=== PATIENT | male | born 1940 | race Caucasian/White ===

== ENCOUNTER → 2016-11-15 | Outpatient (CLI) | payer MEDICARE, OTHER ==
[2016-11-15 08:47] LABS: Basophils # (A) 0.1 k/uL (0-0.2); Basophils % (A) 1 %; CH 31.4; CHCM 34.5; Eosinophils # (A) 0.1 k/uL (0-0.7); Eosinophils % (A) 2 %; HCT 49.1 % (39.0-53.0); HDW 2.69; HGB 16.4 gm/dL (13.0-17.5); Luc % (Auto) 3; Lymphocytes # (A) 1.2 k/uL (1.0-4.8); Lymphocytes % (A) 19 %; MCH 30.5 pg (25.0-35.0); MCHC 33.4 g/dL (31.0-37.0); MCV 91.3 fL (80.0-100.0); Mean Platelet Volume 7.1; Monocytes # (A) 0.5 k/uL (0-1.0); Monocytes % (A) 7 %; Neutrophils # (A) 4.5 k/uL (1.3-7.7); Neutrophils % (A) 69 %; RBC 5.38 m/uL (4.30-5.90); RDW 12.8 % (11.5-15.5); WBC 6.5 k/uL (3.8-10.6); WBC (Perox) 6.82
[2016-11-15 10:48] LABS: Hemoglobin A1C 5.8 % (4.2-6.1)
[2016-11-15 11:05] LABS: ALT 49 U/L (21-72); AST 29 U/L (17-59); Alkaline Phosphatase 66 U/L (38-126); Anion Gap 10 mmol/L; Blood Urea Nitrogen 14 mg/dL (9-20); Calcium 9.3 mg/dL (8.4-10.2); Carbon Dioxide 28 mmol/L (22-30); Chloride 104 mmol/L (98-107); Cholesterol 138 mg/dL (<200); Glucose 125 mg/dL (74-99); HDL Cholesterol 43 mg/dL (40-60); Non-African American GFR(MDRD) >60 (>60 ml/min/1.73 sqM); Potassium 4.1 mmol/L (3.5-5.1); Sodium 142 mmol/L (137-145); Total Protein 6.9 g/dL (6.3-8.2)
[2016-11-15 11:39] LABS: Prostate Specific Antigen <0.10 ng/mL (0.00-4.00)
== END | disposition home or self-care (01) ==
LOC: LABWHC1 08:12
PROVIDERS: ATTEND Internal Medicine Geriatric Medicine
DX: E78.00 Pure hypercholesterolemia, unspecified (principal); R73.09 Other abnormal glucose; N40.0 Benign prostatic hyperplasia without lower urinary tract symptoms; I10 Essential (primary) hypertension
CPT/HCPCS: 36415; 80053; 80061; 83036; 84153; 84439; 84443; 85025

== ENCOUNTER → 2018-08-27 | Outpatient (CLI) | payer MEDICARE, OTHER ==
[2018-08-27 11:28] LABS: Basophils # (A) 0.1 k/uL (0-0.2); Basophils % (A) 1 %; Eosinophils # (A) 0.2 k/uL (0-0.7); Eosinophils % (A) 3 %; HCT 42.6 % (39.0-53.0); HGB 14.3 gm/dL (13.0-17.5); Lymphocytes # (A) 1.2 k/uL (1.0-4.8); Lymphocytes % (A) 19 %; MCH 29.3 pg (25.0-35.0); MCHC 33.6 g/dL (31.0-37.0); MCV 87.2 fL (80.0-100.0); Mean Platelet Volume 7.6; Monocytes # (A) 0.5 k/uL (0-1.0); Monocytes % (A) 8 %; Neutrophils # (A) 4.4 k/uL (1.3-7.7); Neutrophils % (A) 68 %; Platelet Count 267 k/uL (150-450); RBC 4.89 m/uL (4.30-5.90); RDW 13.7 % (11.5-15.5); WBC 6.5 k/uL (3.8-10.6)
[2018-08-27 17:51] LABS: African American GFR (CKD) 100.6 (60.0-200.0); Albumin 4.3 g/dL (3.80-4.90); Albumin/Globulin Ratio 2.26 (1.60-3.17); Anion Gap 9.7 mmol/L (4.00-12.00); Calcium 9.5 mg/dL (8.7-10.3); Carbon Dioxide 28.3 mmol/L (21.6-31.8); Globulin 1.9 g/dL (1.6-3.3); LDL Cholesterol,Calculated 78.8 mg/dL (0.0-131.0); Potassium 4.2 mmol/L (3.5-5.5); Total Protein 6.2 g/dL (6.2-8.2); VLDL Calculation 20.2 mg/dL (5.00-40.00)
[2018-08-27 18:00] LABS: T4, Free (Free Thyroxine) 1.2 ng/dL (0.80-1.80)
[2018-08-27 21:59] LABS: Hemoglobin A1C 5.8 % (4.0-6.0)
== END | disposition home or self-care (01) ==
LOC: LABWHC1 10:58
PROVIDERS: ATTEND Internal Medicine Geriatric Medicine
DX: Z00.00 Encounter for general adult medical examination without abnormal findings (principal); I10 Essential (primary) hypertension; R73.9 Hyperglycemia, unspecified; D40.0 Neoplasm of uncertain behavior of prostate
CPT/HCPCS: 36415; 80053; 80061; 83036; 84153; 84439; 84443; 85025

== ENCOUNTER → 2018-09-03 | Outpatient (CLI) | payer MEDICARE, OTHER ==
--- NOTE | 2018-09-04 18:19 | MR ---
EXAMINATION TYPE: MR brain wo/w con DATE OF EXAM: 09/03/2018 COMPARISON: None HISTORY: Memory Loss TECHNIQUE: Multiplanar, multisequence images of the brain and brainstem is performed without and with IV contras t, utilizing 9 mL intravenous Gadavist . FINDINGS: Diffusion weighted images demonstrate no evidence of a recent infarct or other diffusion ab normality. There is no extra-axial fluid collection or significant white matter signal abnormality s ome confluent periventricular white matter hyperintensity present on inversion recovery T2-weighted s equence is noted.. The ventricular system and cisternal spaces are normal in size and appearance. T he brain volume is age appropriate. There is likely age-related atrophy. Midline structures demonstrate normal morphology. The craniocervical junction appears within normal limits. Post contrast images demonstrate no abnormal enhancement. The dural venous sinuses appear pa tent. The visualized sinuses are clear and the globes are intact. Large fat signal intensity focus is present in the posterior left neck measuring approximately 5.6 x 5.7 cm x 6.7 cm likely represents l ipoma. IMPRESSION: Age-related atrophy and probable chronic small vessel ischemic change. Large lipoma poste rior left neck.
== END | disposition home or self-care (01) ==
LOC: RADMRIMAIN 11:23
PROVIDERS: ATTEND Internal Medicine Geriatric Medicine
DX: G31.1 Senile degeneration of brain, not elsewhere classified (principal)
CPT/HCPCS: 70553; A9585

== ENCOUNTER → 2020-10-15 | Outpatient (CLI) | payer MEDICARE, OTHER ==
[2020-10-15 16:52] LABS: Basophils # (A) 0.08 X 10*3/uL (0.00-0.10); Basophils % (A) 1.3 %; Eosinophils # (A) 0.12 X 10*3/uL (0.04-0.35); Eosinophils % (A) 1.9 %; HCT 45.8 % (39.6-50.0); HGB 15.4 g/dL (13.0-17.0); Lymphocytes # (A) 1.34 X 10*3/uL (0.90-5.00); Lymphocytes % (A) 21.6 %; MCH 29.6 pg (27.0-32.0); MCHC 33.6 g/dL (32.0-37.0); MCV 87.9 fL (80.0-97.0); Mean Platelet Volume 11.3 fL (9.5-12.2); Monocytes # (A) 0.66 X 10*3/uL (0.20-1.00); Monocytes % (A) 10.6 %; Neutrophils # (A) 3.95 X 10*3/uL (1.80-7.70); Neutrophils % (A) 63.8 %; Platelet Count 268 X 10*3/uL (140-440); RBC 5.21 X 10*6/uL (4.40-5.60); RDW 12.7 % (11.5-14.5)
[2020-10-15 19:34] LABS: ALT 25 U/L (10-49); AST 27 U/L (14-35); African American GFR (CKD) 94.5 (60.0-200.0); Albumin/Globulin Ratio 1.88 (1.60-3.17); Alkaline Phosphatase 77 U/L (41-126); BUN/Creat Ratio 16.67 Ratio (12.00-20.00); Calcium 9.6 mg/dL (8.7-10.3); Carbon Dioxide 27.7 mmol/L (21.6-31.8); Chloride 103 mmol/L (96-109); Chol/HDL Ratio 3.55; Cholesterol 149 mg/dL (0-200); Globulin 2.4 g/dL (1.6-3.3); Glucose 108 mg/dL (70-110); LDL Cholesterol,Calculated 87.8 mg/dL (0.0-131.0); Non-African American GFR(CKD) 81.5 (60.0-200.0); Potassium 4.3 mmol/L (3.5-5.5); Sodium 140 mmol/L (135-145); Total Bilirubin 1.4 mg/dL (0.2-1.2); Total Protein 6.9 g/dL (6.2-8.2)
[2020-10-15 20:09] LABS: Hemoglobin A1C 5.6 % (4.0-6.0)
[2020-10-15 20:12] LABS: Prostate Specific Antigen <0.1 ng/mL (0.0-6.5)
== END | disposition home or self-care (01) ==
LOC: LABWHC1 09:54
PROVIDERS: ATTEND Internal Medicine Geriatric Medicine
DX: Z00.01 Encounter for general adult medical examination with abnormal findings (principal); E78.2 Mixed hyperlipidemia; D40.0 Neoplasm of uncertain behavior of prostate; R41.3 Other amnesia; R73.09 Other abnormal glucose
CPT/HCPCS: 36415; 80053; 80061; 83036; 84153; 84439; 84443; 85025